=== PATIENT | male | born 1950 | race Caucasian/White ===

== ENCOUNTER 2018-12-13 06:07 | Day surgery (SDC) | payer MEDICARE, BC ==
[2018-12-12 15:26] VITALS: BMI 34.2
[2018-12-13] VITALS (22 sets, daily range): BP systolic 122–161; BP diastolic 57–96; PULSE 72–96; RESP 11–32; Ht 177.8 cm; Wt 110.0 kg
[~2018-12-13] VITALS: Ht 177.8 cm; Wt 110.0 kg
[2018-12-13] MEDS ORDERED: AMLO1CAP8 ORAL (07:00)
[2018-12-13] MEDS ORDERED: TRAZ150T65 ORAL (07:00)
[2018-12-13] MEDS ORDERED: PHENYLephrine (100 MCG/ML) 10ML SYG ONE (07:00)
--- NOTE | 2018-12-13 07:35 | PREAC ---
Date/Time of Note Date/Time of Note DATE: 12/13/18 TIME: 07:33 Anesthesia Eval and Record Evaluation Time Pre-Procedure Interview DATE: 12/13/18 TIME: 07:33 Age 68 Sex male NPO: 8 hrs Preoperative diagnosis low back pain Planned procedure left L5 to S1 discectomy Past Medical History Past Medical History: Includes Cardio: HTN, Dyslipidemia Neuro: Other (chronic back pain, cervical DDD s/p neck surgery) Musculoskeletal: Osteoarthritis (s/p left TSA and left BETTY,) Surgery & Anesthesia Issues No known issue Meds Anticoagulation: No Beta Oscar within 24 hr: No Reason Beta Oscar not given: Pt. not on B-Oscar Reported Medications Trazodone Hcl* (Desyrel*) 150 Mg Tablet, 1 TAB ORAL QHS 12/13/18 Amlodipine Besylate/Benazepril (Amlodipine-Benazepril 5-10 mg) 1 Each Capsule, 1 CAP ORAL DAILY 12/13/18 Meds reviewed: Yes Allergies Coded Allergies: No Known Drug Allergies (Verified Allergy, Unknown, 12/13/18) Allergies Reviewed: Yes Labs/Studies Labs Reviewed: Reviewed by anesthesiologist test: N/A Studies: ECG, CXR Pre-procedure Exam Last vitals Vital Signs Date Temp Pulse Resp B/P (MAP) Pulse Ox O2 O2 Flow FiO2 Time Delivery Rate 12/13/18 97.6 82 18 133/74 92 06:50 (93) Airway: Adequate mouth opening, Adequate thyromental dist Mallampati: Mallampati II Teeth: Normal Lung: Normal Heart: Normal ASA Physical Status ASA physical status: 2 Emergency: None Planned Anesthetic General/MAC: ETT Planned Pain Management Parenteral pain med, Local by surgeon Pre-operative Attestations Prior to commencing anesthesia and surgery, the patient was re-evaluated, there was verification of: *The patient's identity *The results of appropriate recent lab work and preoperative vital signs *The above evaluation not changing prior to induction *Anesthetic plan, risk benefits, alternative and complications discussed with patient/family; questions answered; patient/family understands, accepts and wishes to proceed. SMITA CAPONE December 13, 2018 07:35
[2018-12-13] MEDS ORDERED: LIDOCAINE 4% (MPF) 5 ML INJ ONE (07:37)
[2018-12-13] MEDS ORDERED: ROCURONIUM 50 MG INJ ONE (07:42)
[2018-12-13] MEDS ORDERED: MIDAZOLAM 1 MG/ML 2 ML INJ ONE (07:42)
[2018-12-13] MEDS ORDERED: LIDOCAINE 2% (SDV) 5 ML INJ ONE (07:42)
[2018-12-13] MEDS ORDERED: SUCCINYLCHOLINE CHLORIDE 100 MG/5 ML SYG IV ONE (07:42)
[2018-12-13] MEDS ORDERED: CEFAZOLIN 1 GM INJ ONE (07:42)
[2018-12-13] MEDS ORDERED: PROPOFOL 20 ML ONE (07:42)
[2018-12-13] MEDS ORDERED: FENTAnyl 50 MCG/ML VIAL ONE ×2 (07:42→09:08)
--- NOTE | 2018-12-13 07:48 | HPN ---
Date/Time of Note Date/Time of Note DATE: 12/13/18 TIME: 07:48 Interval H&P Admission Note Pt. seen H&P reviewed: No system changes DMITRIY SCANLON MD December 13, 2018 07:48
[2018-12-13] MEDS ORDERED: POLYMYXIN/BACITRACIN 1L IRRIG ONE (07:50)
[2018-12-13] MEDS ORDERED: GELATIN SIZE 100 SPONGE ONE (07:50)
[2018-12-13] MEDS ORDERED: BUPIVACAINE 0.25%/EPI (SDV) 30 ML INJ ONE (07:50)
[2018-12-13] MEDS ORDERED: THROMBIN (BOVINE) 5,000 UNIT VIAL TP ONE ×2 (07:50→07:51)
[2018-12-13] MEDS ORDERED: SURGIFOAM POWDER 1 GM KIT ONE (07:56)
[2018-12-13] MEDS ORDERED: BUPIVACAINE 0.5%/EPI (SDV) 30 ML INJ ONE (08:36)
[2018-12-13] MEDS ORDERED: FAMOTIDINE 20 MG INJ ONE (08:42)
[2018-12-13] MEDS ORDERED: MAGNESIUM SULFATE 1 GM/D5W 100 ML ONE (08:42)
[2018-12-13] MEDS ORDERED: ONDANSETRON 4 MG INJ ONE (08:42)
[2018-12-13] MEDS ORDERED: DEXAMETHASONE 4 MG/ML 5 ML INJ ONE (08:42)
[2018-12-13] MEDS ORDERED: METOCLOPRAMIDE 10 MG INJ ONE (08:42)
[2018-12-13] MEDS ORDERED: CA CHLORIDE 10% 10 ML SYRINGE ONE (08:47)
[2018-12-13] MEDS ORDERED: SUGAMMADEX SODIUM 200 MG/2 ML VIAL IV ONE (09:09)
[2018-12-13] MEDS ORDERED: BETAMET NA PHOS/AC(6 MG/ML) 5ML INJ ONE (09:41)
[2018-12-13] MEDS ORDERED: MEPERIDINE 25 MG INJ IV PRN (10:00)
[2018-12-13] MEDS ORDERED: ONDANSETRON 4 MG INJ IV PRN ×2 (10:00→10:30)
[2018-12-13] MEDS ORDERED: MIDAZOLAM 1 MG/ML 2 ML INJ IV PRN (10:00)
[2018-12-13] MEDS ORDERED: OXYCODONE/ACETAMINOPHEN (5/325) TAB PO PRN ×2 (10:00)
[2018-12-13] MEDS ORDERED: hydrALAzine 20 MG INJ IV PRN (10:00)
[2018-12-13] MEDS ORDERED: LABETALOL HCL 20MG INJ IV PRN (10:00)
[2018-12-13] MEDS ORDERED: ALBUTEROL 0.083% (NEB) 2.5 MG/3 ML AMP HHN PRN (10:00)
[2018-12-13] MEDS ORDERED: HYDROmorphONE 1 MG/5 ML IV SYRINGE IV PRN ×2 (10:00)
[2018-12-13] MEDS ORDERED: AL HYDROX/MG HYDROX/SIMETH 30 ML CUP PO PRN (10:30)
[2018-12-13] MEDS ORDERED: ACETAMINOPHEN 325 MG TAB PO PRN (10:30)
[2018-12-13] MEDS ORDERED: NACL 0.9% 3 ML SYG IV SCH (10:30)
[2018-12-13] MEDS ORDERED: NALOXONE (0.4 MG/ML) INJ IV PRN (10:30)
[2018-12-13] MEDS ORDERED: PROCHLORPERAZINE 10 MG TAB PO PRN (10:30)
--- NOTE | 2018-12-13 10:47 | OPR ---
Date/Time of Note Date/Time of Note DATE: 12/13/18 TIME: 10:36 Operative Report Free Text/Dictation DATE OF OPERATION: 12/13/2018 PREOPERATIVE DIAGNOSES: 1. Left sided L5-S1 lateral recess stenosis with S1 radiculopathy 2. Left paracentral L5-S1 disc herniation with S1 radiculopathy 3. Morbid obesity BMI: 35 kg/m2 POSTOPERATIVE DIAGNOSES: 1. Left sided L5-S1 lateral recess stenosis with S1 radiculopathy 2. Left paracentral L5-S1 disc herniation with S1 radiculopathy 3. Morbid obesity BMI: 35 kg/m2 OPERATION PERFORMED: 1. Left L5-S1 ema-laminectomy, medial facetectomy, and foraminotomy 2. Left sided L5-S1 microdiskectomy SURGEON: Dmitriy Scanlon MD CIT[employer]EN[employer] TEACHER: PEDRO Og ANESTHESIA: General endotracheal ESTIMATED BLOOD LOSS: 50 mL SURGICAL INDICATION: The patient is a 68 year-old male who presents with a several month history of worsening left lower extremity pain with left sided S1 radiculopathy. He was found to have a left sided lateral recess stenosis w/ a left sided HNP at L5-S1 which correlated well with his symptoms. The patient had failed conservative treatment. Risks, benefits, and alternatives to a L5-S1 left sided microdiscectomy and decompression were explained to the patient and they wished to proceed. Risks explained included but were not exclusive of bleeding, infection, cauda equina syndrome, nerve injury, dural tear, iatrogenic instability requiring fusion, recurrent disc herniation, fracture, vascular injury, bowel injury, stroke, heart attack and pulmonary embolism. DESCRIPTION OF TECHNIQUE: The patient was identified in the preoperative area and taken to the operating room. Rapid induction of general endotracheal anesthesia was performed. The patient was given 2 g of cefazolin for prophylaxis. The patient was then placed in the prone position on the Claudy frame on a Esequiel flat top table with all prominences well padded. The back was prepped and draped in the usual sterile manner. A time out was held. Using a spinal needle and intraoperative fluoroscopy, the appropriate level was clearly identified (L5-S1). The skin was injected using 0.25% Marcaine with epinephrine. Longitudinal midline incision was then created using a 10 blade. Further dissection through soft tissue was performed using electrocautery down to the left L5 spinous processes.Dissection was taken down the lamina and over the facet joint capsule. A self-retaining retractor was applied. Again, intraoperative fluoroscopy confirmed the L5-S1 level.The microscope was brought into use for microdissection. The high-speed bur was used to thin the left L5 lamina. Kerrison rongeurs were then used to resect a the lamina, and a portion of the medial facet and the bone overlying the foramen. The ligamentum flavum was also resected using the Kerrison rongeurs. Care was taken to protect the thecal sac throughout the decompressive procedure.The dura and traversing nerve root were both directly visualized. These were retracted gently in a medial direction. Immediately, the extruded disc fragment was noted. The pseudo anulus was incised using an 11 blade. Several loose fragments of disk were removed. These were removed back to a stable portion of the disk. The disk space was further pressurized using a using normal saline through a syringe to ensure that no loose fragments remained behind. The traversing S1 nerve root was noted to be significantly decompressed. Palpation with a ball-tip probe did not reveal any further stenosis in the central, subarticular, or foraminal areas. The left L5 and S1 pedicles were palpated using a jorge luis to ensure a pedicle to pedicle decompression. The exitng Left L5 and traversing S1 nerve root was directly visualized and noted to be decompressed. The cephalad and caudad extent of the decompression were also confirmed using ball-tip probes and intraoperative fluoroscopy. Meticulous attention was then paid towards hemostasis using FloSeal as well as Gelfoam and thrombin. Care was taken to remove all FloSeal and Gelfoam prior to wound closure. The fascia was then closed using 0 Vicryl in an interrupted fashion. Subcutaneous tissue was closed using 2-0 Vicryl in an interrupted fashion. The skin was closed using a running 4-0 Monocryl stitch. The wound was dressed using Dermabond and a 4x4 sterile gauze. The patient was returned to the supine position. He was extubated immediately postoperatively and taken to the recovery room in stable condition. This procedure took an additional 45 minutes for dissection and decompression given the patient body habitus (BMI 35 kg/m2). Procedure Date: December 13, 2018 Preoperative Diagnosis 1. Left sided L5-S1 lateral recess stenosis with S1 radiculopathy 2. Left paracentral L5-S1 disc herniation with S1 radiculopathy 3. Morbid obesity BMI: 35 kg/m2 Postoperative Diagnosis 1. Left sided L5-S1 lateral recess stenosis with S1 radiculopathy 2. Left paracentral L5-S1 disc herniation with S1 radiculopathy 3. Morbid obesity BMI: 35 kg/m2 Operation/Procedure Performed 1. Left L5-S1 ema-laminectomy, medial facetectomy, and foraminotomy 2. Left sided L5-S1 microdiskectomy Surgeon see signature line Insole Tack Puller Hand PEDRO Og Anesthesia Type: general Estimated Blood Loss: 50 - 100 ml's Transfusion none Specimen L5-S1 disk Grafts/Implants none Complications none Pt Condition Post Procedure: stable Disposition: PACU Procedure Description DESCRIPTION OF TECHNIQUE: The patient was identified in the preoperative area and taken to the operating room. Rapid induction of general endotracheal anesthesia was performed. The patient was given 2 g of cefazolin for prophylaxis. The patient was then placed in the prone position on the Claudy frame on a Esequiel flat top table with all prominences well padded. The back was prepped and draped in the usual sterile manner. A time out was held. Using a spinal needle and intraoperative fluoroscopy, the appropriate level was clearly identified (L5-S1). The skin was injected using 0.25% Marcaine with epinephrine. Longitudinal midline incision was then created using a 10 blade. Further dissection through soft tissue was performed using electrocautery down to the left L5 spinous processes.Dissection was taken down the lamina and over the facet joint capsule. A self-retaining retractor was applied. Again, intraoperative fluoroscopy confirmed the L5-S1 level.The microscope was brought into use for microdissection. The high-speed bur was used to thin the left L5 lamina. Kerrison rongeurs were then used to resect a the lamina, and a portion of the medial facet and the bone overlying the foramen. The ligamentum flavum was also resected using the Kerrison rongeurs. Care was taken to protect the thecal sac throughout the decompressive procedure.The dura and traversing nerve root were both directly visualized. These were retracted gently in a medial direction. Immediately, the extruded disc fragment was noted. The pseudo anulus was incised using an 11 blade. Several loose fragments of disk were removed. These were removed back to a stable portion of the disk. The disk space was further pressurized using a using normal saline through a syringe to ensure that no loose fragments remained behind. The traversing S1 nerve root was noted to be significantly decompressed. Palpation with a ball-tip probe did not reveal any further stenosis in the central, subarticular, or foraminal areas. The left L5 and S1 pedicles were palpated using a jorge luis to ensure a pedicle to pedicle decompression. The exitng Left L5 and traversing S1 nerve root was directly visualized and noted to be decompressed. The cephalad and caudad extent of the decompression were also confirmed using ball-tip probes and intraoperative fluoroscopy. Meticulous attention was then paid towards hemostasis using FloSeal as well as Gelfoam and thrombin. Care was taken to remove all FloSeal and Gelfoam prior to wound closure. The fascia was then closed using 0 Vicryl in an interrupted fashion. Subcutaneous tissue was closed using 2-0 Vicryl in an interrupted fashion. The skin was closed using a running 4-0 Monocryl stitch. The wound was dressed using Dermabond and a 4x4 sterile gauze. The patient was returned to the supine position. He was extubated immediately postoperatively and taken to the recovery room in stable condition. This procedure took an additional 45 minutes for dissection and decompression given the patient body habitus (BMI 35 kg/m2). DMITRIY SCANLON MD December 13, 2018 10:46
--- NOTE | 2018-12-13 10:48 | PDOCDIS ---
Discharge Instructions CONDITION [id number] Patient Condition: [id number] Good HOME CARE INSTRUCTIONS: [id number] Diet Instructions: [id number] Regular ACTIVITY: [id number] Activity Restrictions: [id number] Avoid heavy lifting Avoid Heavy Housework [id number] Bathing Restrictions: [id number] Shower FOLLOW UP/APPOINTMENTS Follow-up Plan Follow-up with Dr. Scanlon in 2 weeks DMITRIY SCANLON MD December 13, 2018 10:48
[2018-12-13] MEDS ORDERED: HYDROmorphONE 0.5 MG/0.5 ML SYG IV PRN (11:00)
[2018-12-13] MEDS ORDERED: LORAZEPAM 2 MG INJ IV PRN (11:00)
[2018-12-13] MEDS: HYDROmorphONE 1 MG/5 ML IV SYRINGE IV PRN ×2 (11:23→11:38)
--- NOTE | 2018-12-13 11:31 | PAC ---
Date/Time of Note Date/Time of Note DATE: 12/13/18 TIME: 11:31 Post-Anesthesia Notes Post-Anesthesia Note Last documented vital signs Vital Signs Date Temp Pulse Resp B/P (MAP) Pulse Ox O2 O2 Flow FiO2 Time Delivery Rate 12/13/18 90 13 161/84 97 Nasal 3.0 11:18 (109) Cannula 12/13/18 99.2 10:56 Activity: WNL Respiratory function: WNL Cardiovascular function: WNL Mental status: Baseline Pain reasonably controlled: Yes Hydration appropriate: Yes Nausea/Vomiting absent: Yes SMITA CAPONE December 13, 2018 11:31
[2018-12-13] MEDS: CEFAZOLIN 1 GM/50 ML (PMX) 50 ML IVPB SCH ×2 (13:31→21:25)
[2018-12-13] MEDS ORDERED: traZODone 50 MG TAB PO PRN (15:00)
--- NOTE | 2018-12-13 15:11 | CONS ---
DATE OF ADMISSION: 12/13/2018 DATE OF CONSULTATION: 12/13/2018 Thank you, Dr. Clark for asking me to participate in medical management of this patient. REASON FOR CONSULTATION: To manage the patient's hypertension and insomnia. HISTORY OF PRESENT ILLNESS: This 68-year-old man is now postop a lumbar spine surgery. The patient for the last 4 months has been having low back pain with radiation down his left leg. He underwent a surgery today by Dr. Clark. The patient was diagnosed preoperatively with a left-sided L5-S1 la teral recess stenosis with S1 radiculopathy and also, a left paracentral L5-S1 disk herniation with S 1 radiculopathy. The procedure performed was a left L5-S1 hemilaminectomy, medial facetectomy, and f oraminotomy with a left-sided L5-S1 microdiskectomy. The patient is now awake and alert. His pain i s controlled. He denies chest pain or shortness of breath. There is a preoperative note on the jay t from Dr. Radha Lockhart, the patient's primary care physician. PAST MEDICAL HISTORY: Hypertension, lichen planus, tinea pedis, onychomycosis, insomnia, depression, erectile dysfunction, pneumonia in the past. Left hip osteoarthritis, anxiety, panic attacks. PAST SURGICAL HISTORY: Includes left frozen shoulder, status post surgery, C-spine degenerative disk disease, status post 3 surgeries. CURRENT MEDICATIONS: Include the followin. Amlodipine/benazepril 5/10 mg oral capsule. 2. Trazodone 150 mg 1/2 tablet at bedtime. PHYSICAL EXAMINATION: GENERAL: At this time reveals a well-developed man in no apparent distress. VITAL SIGNS: He is afebrile, pulse is 76, respirations 16, blood pressure 126/75, O2 saturation of 9 7% on 3 liters. HEENT: HEAD: Normocephalic. EYES: Extraocular muscles intact. NOSE AND MOUTH: Normal. NECK: Supple. No neck vein distention. LUNGS: Clear to auscultation. HEART: Regular rhythm. No murmurs, gallops or rubs. ABDOMEN: Soft, nontender. EXTREMITIES: No peripheral edema. IMPRESSION: This patient is doing well after lumbosacral spine surgery today. He is awake and alert . His pain is under control. I will manage the patient's hypertension and insomnia. PLAN: 1. Resume routine medications. 2. Check labs in the morning. 3. Postop lumbosacral spine surgery protocol. 4. I will follow the patient along with you medically. Dictated By: BRUNO MUIR MD ND/NTS Conf#: [id number] DID#: [id number] CC: MAURY QUEZADA MD;*End*
[2018-12-13] MEDS: OXYCODONE/ACETAMINOPHEN (10/325) TAB PO PRN ×2 (18:04→23:21)
[2018-12-13] MEDS ORDERED: traZODone 50 MG TAB PO SCH (21:00)
[2018-12-13] MEDS ORDERED: traZODone 100 MG TAB PO SCH (21:00)
[2018-12-13] MEDS: ACETAMINOPHEN 1000MG/100ML IV 100 ML IVPB SCH (21:26)
[2018-12-14 02:20] VITALS: BP 102/51; PULSE 71; RESP 18
[2018-12-14] MEDS: CEFAZOLIN 1 GM/50 ML (PMX) 50 ML IVPB SCH ×2 (02:30→08:47)
[2018-12-14 07:15] VITALS: BP 123/64; PULSE 79; RESP 18
[2018-12-14] MEDS: OXYCODONE/ACETAMINOPHEN (10/325) TAB PO PRN (07:53)
[2018-12-14] MEDS: ACETAMINOPHEN 1000MG/100ML IV 100 ML IVPB SCH (08:47)
[2018-12-14] MEDS ORDERED: BENAZEPRIL 10 MG TAB PO SCH (09:00)
[2018-12-14] MEDS ORDERED: DOCUSATE SODIUM 100 MG CAP PO SCH (09:00)
[2018-12-14] MEDS ORDERED: AMLODIPINE 5 MG TAB PO SCH (09:00)
== END 2018-12-14 11:15 | disposition home or self-care (01) ==
LOC: SDS 06:07 → REC 10:55 → UNDOADMOB 10:55 → MS1 11:05 → REC 11:34 → SDS 12-14 11:15
PROVIDERS: ATTEND Orthopaedic Surgery
DX: M48.061 Spinal stenosis, lumbar region without neurogenic claudication (principal); M51.16 Intervertebral disc disorders with radiculopathy, lumbar region; I10 Essential (primary) hypertension; E78.5 Hyperlipidemia, unspecified
CPT/HCPCS: 63030; 72100; 80048; 85014; 85018; 86850; 86900; 86901; 88304; 97116; 97161; 97530; J0131; J0690; J0702; J1100; J1170; J2175; J2250; J2370; J2405; J2765; J3010; J3475